=== PATIENT | female | born 1980 | race Caucasian/White ===

== ENCOUNTER → 2020-05-13 14:31 | Outpatient (CLI) | payer OTHER, SELFPAY ==
--- NOTE | ~2020-05-13 | MR_ITS ---
EXAMINATION: MR femur RT wo con DATE: 05/13/2020 15:25 INDICATION: Right leg pain. TECHNIQUE: Magnetic resonance imaging (MRI) of the right femur/thigh was performed without intravenou s contrast. Sequences included axial, sagittal and coronal T1-weighted FSE, axial T2-weighted FS FSE , and sagittal and coronal fluid sensitive FSE STIR. The contralateral left thigh is included on the coronal images. COMPARISON: None. FINDINGS: Normal marrow signal with typical symmetric pattern of mild red marrow conversion predominantly in th e lesser trochanters and intratrochanteric regions. No fracture. No periosteal reaction or marrow karen ma to suggest stress injury. No hip or knee joint effusions. Soft tissues are unremarkable with judith l symmetric muscle bulk and signal throughout both thighs. The neurovascular structures in the right thyroid unremarkable. IMPRESSION: 1. Normal MRI of the right femur/thigh. Reviewed, dictated and finalized at location A.
== END ==
PROVIDERS: Visit Provider Orthopaedic Surgery
DX: M79.604 Pain in right leg (principal)
CPT/HCPCS: 73718

== ENCOUNTER → 2022-06-19 16:08 | Outpatient (CLI) | payer OTHER, SELFPAY ==
--- NOTE | ~2022-06-19 | MM_ITS ---
EXAMINATION: MM scrn nick implant BI w abdulaziz HISTORY: Screening mammogram TECHNIQUE: Craniocaudal and mediolateral oblique 3-D tomosynthesis images with implant displacement a nd synthetic 2-D images were generated. Craniocaudal and mediolateral oblique views of the breasts wi thout implant displacement were obtained using full field digital mammography. CAD analysis was submi tted and interpreted. COMPARISON: No prior mammogram is available for comparison at this institution. BREAST PARENCHYMAL COMPOSITION: The breasts are heterogeneously dense, which may obscure small masses . FINDINGS: There is no evidence of suspicious mass, calcification, or architectural distortion to sugg est malignancy in either breast. There has been no suspicious interval change. IMPRESSION: 1. No mammographic evidence of malignancy. 2. Recommend routine screening mammography in one year. BI-RADS Category 1: Negative Reviewed, dictated and finalized at location A.
== END ==
PROVIDERS: PCP Obstetrics & Gynecology; Visit Provider Obstetrics & Gynecology
DX: Z12.31 Encounter for screening mammogram for malignant neoplasm of breast (principal)
CPT/HCPCS: 77063; 77067

== ENCOUNTER 2024-01-20 15:11 | Outpatient (CLI) | payer OTHER, SELFPAY ==
--- NOTE | ~2024-01-20 | MM_ITS ---
EXAMINATION: MM scrn nick implant BI w abdulaziz HISTORY: Screening mammogram TECHNIQUE: Craniocaudal and mediolateral oblique 3-D tomosynthesis images with implant displacement a nd synthetic 2-D images were generated. Craniocaudal and mediolateral oblique views of the breasts wi thout implant displacement were obtained using full field digital mammography. CAD analysis was submi tted and interpreted. COMPARISON: 06/19/2022 BREAST PARENCHYMAL COMPOSITION: Dense: The breasts are extremely dense, which lowers the sensitivity of mammography. FINDINGS: There are bilateral subpectoral breast implants. There is no evidence of suspicious mass, c alcification, or architectural distortion to suggest malignancy in either breast. There has been no s uspicious interval change. IMPRESSION: 1. No mammographic evidence of malignancy. 2. Recommend routine screening mammography in one year. BI-RADS Category 1: Negative Reviewed, dictated and finalized at location A.
== END 2024-01-20 15:12 ==
PROVIDERS: PCP Obstetrics & Gynecology; Visit Provider Obstetrics & Gynecology
DX: Z12.31 Encounter for screening mammogram for malignant neoplasm of breast (principal)
CPT/HCPCS: 77063; 77067